=== PATIENT | female | born 1970 | race Caucasian/White ===

== ENCOUNTER 2016-08-23 21:20 | Observation (INO) | payer OTHER ==
[~2016-08-23] VITALS: Ht 175.3 cm; Wt 89.1 kg
[~2016-08-23 21:20] MED LIST: HYDR1TAB PO
[2016-08-23] MEDS ORDERED: fentaNYL INJECTION 100 MCG/2 ML AMP ONE (21:29)
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
[2016-08-23 21:50] LABS: MEAN PLATELET VOLUME 11.2 FL (7.4-10.4); RED BLOOD COUNT 4.27 10^6/uL (4.35-5.85); RED CELL DISTRIBUTION WIDTH 13.1 % (10.0-14.5); WHITE BLOOD COUNT 16.1 10^3/uL (4.3-11.0)
--- NOTE | 2016-08-23 21:56 | Diagnostic Imaging Report ---
PROCEDURE: CT head and CT cervical spine without contrast. TECHNIQUE: Multiple contiguous axial images were obtained through the brain and cervical spine without the use of intravenous contrast. Sagittal and coronal reformations through the cervical spine were then performed. Indication: Head and neck pain after being thrown from a horse. Comparison: None. Discussion: Head: No intracranial hemorrhage, mass, midline shift, or hydrocephalus. The ventricles and sulci are normal size and configuration for age. The visualized orbits, paranasal sinuses, mastoid air cells, and calvarium are unremarkable. Cervical spine: No acute fracture, subluxation, or other osseous abnormality identified. No significant degenerative disease. Alignment is anatomic. Soft tissues are unremarkable. Impression: 1. Negative head CT. 2. Negative cervical spine CT. Dictated by: Dictated on workstation # [id number]
[2016-08-23 22:05] LABS: INR 1.2 (0.8-1.4); PROTHROMBIN TIME PATIENT 14.4 SEC (12.2-14.7)
[2016-08-23] MEDS ORDERED: fentaNYL INJECTION 100 MCG/2 ML AMP IVP STA (22:06)
[2016-08-23 22:08] LABS: ALANINE AMINOTRANSFERASE 47 U/L (0-55); ALBUMIN 3.6 G/DL (3.2-4.5); ANION GAP 10 MMOL/L (5-14); ASPARTATE AMINO TRANSFERASE 55 U/L (5-34); BILIRUBIN,DIRECT 0.1 MG/DL (0.0-0.3); BILIRUBIN,INDIRECT 0.2 MG/DL; BILIRUBIN,TOTAL 0.3 MG/DL (0.1-1.0); BLOOD UREA NITROGEN 17 MG/DL (7-18); BUN/CREATININE RATIO 22; CARBON DIOXIDE 21 MMOL/L (21-32); CHLORIDE 106 MMOL/L (98-107); CREATININE SERUM 0.79 MG/DL (0.60-1.30); GFR ESTIMATED > 60; GLUCOSE 107 MG/DL (70-105); POTASSIUM 4.1 MMOL/L (3.6-5.0); SODIUM 137 MMOL/L (135-145); TOTAL PROTEIN 7.4 G/DL (6.4-8.2)
[2016-08-23 22:09] LABS: ALCOHOL < 10 MG/DL (<10)
[2016-08-23 22:14] LABS: TROPONIN I < 0.30 NG/ML (<0.30)
[2016-08-23] MEDS ORDERED: NS 100 ML (IVPB) BAG IV ONE (22:30)
[2016-08-23] MEDS ORDERED: IOHEXOL 350 MG/ML 100 ML (OMNIPAQUE 350) VIAL IV ONE (22:30)
[2016-08-23] MEDS ORDERED: morphine INJ 10 MG/ML 1ML (SYR OR VIAL) ONE (22:31)
[2016-08-23] MEDS ORDERED: morphine INJ 10 MG/ML 1ML (SYR OR VIAL) IVP STA ×2 (22:34→23:15)
[2016-08-23 23:39] LABS: BILIRUBIN,URINE NEGATIVE (NEGATIVE); KETONES,URINE NEGATIVE (NEGATIVE); LEUKOCYTE ESTERASE ,URINE 1+ (NEGATIVE); NITRITE,URINE NEGATIVE (NEGATIVE); PH,URINE 5 (5-9); PROTEIN,URINE 2+ (NEGATIVE); UROBILINOGEN,URINE NORMAL (NORMAL)
[2016-08-23 23:48] LABS: WBC,URINE RARE /HPF
[2016-08-23 23:49] LABS: SQUAMOUS EPITHELIAL CELL,UR 0-2 /HPF
[2016-08-24] VITALS (16 sets, daily range): BP systolic 97–125; BP diastolic 64–80
[2016-08-24] MEDS ORDERED: morphine INJ 10 MG/ML 1ML (SYR OR VIAL) IVP STA (00:45)
[2016-08-24] MEDS ORDERED: D5 1/2 NS W/KCL 20 MEQ/L 1,000 ML IV ONE (01:24)
[2016-08-24] MEDS ORDERED: NICOTINE 21 MG (NICODERM) PATCH ONE (01:25)
[2016-08-24] MEDS ORDERED: D5 1/2 NS 1000 ML IV SOLUTION 1,000 ML IV SCH (01:30)
[2016-08-24] MEDS ORDERED: CATHETER FLUSH 10 ML SYR IV PRN (01:30)
[2016-08-24] MEDS ORDERED: ONDANSETRON 4 MG/2 ML (SDV) Z0FRAN IV PRN ×2 (01:30→04:15)
[2016-08-24] MEDS: D5 1/2 NS W/KCL 20 MEQ/L 1,000 ML IV SCH ×2 (01:58→08:18)
[2016-08-24] MEDS ORDERED: RT-ALBUTEROL SULF 2.5 MG/3 ML PRE-MIX VIAL IH PRN (02:00)
[2016-08-24] MEDS ORDERED: 1/2 NS IV SOLUTION 1,000 ML IV PRN (04:07)
[2016-08-24] MEDS ORDERED: SENNA W/DOCUSATE (SENOKOT S) TABLET PO PRN (04:15)
[2016-08-24] MEDS ORDERED: D5 1/2 NS 1000 ML IV SOLUTION 1,000 ML IV PRN (04:15)
[2016-08-24] MEDS ORDERED: LORazepam INJ 2 MG/ML (ATIVAN) VIAL IM/IV PRN (04:15)
[2016-08-24] MEDS ORDERED: ANTACID SUSP 30 ML UDC (MYLANTA) PO PRN (04:15)
[2016-08-24] MEDS ORDERED: LORazepam 1 MG (ATIVAN) TAB PO PRN (04:15)
[2016-08-24] MEDS ORDERED: LORazepam INJ 2 MG/ML (ATIVAN) VIAL IV PRN (04:15)
[2016-08-24] MEDS: morphine INJ 10 MG/ML 1ML (SYR OR VIAL) IV PRN ×5 (04:18→12:17)
[2016-08-24 04:23] LABS: BASOPHILS % (AUTO) 0 % (0-10); EOSINOPHILS % (AUTO) 0 % (0-10); LYMPHOCYTES # (AUTO) 1.1 X 10^3 (1.0-4.0); LYMPHOCYTES % (AUTO) 7 % (12-44); MEAN CORPUSCULAR HEMOGLOBIN 30 PG (25-34); MEAN CORPUSCULAR HGB CONC 33 G/DL (32-36); MEAN CORPUSCULAR VOLUME 92 FL (80-99); MEAN PLATELET VOLUME 11.5 FL (7.4-10.4); MONOCYTES # (AUTO) 1.1 X 10^3 (0.0-1.0); MONOCYTES % (AUTO) 8 % (0-12); NEUTROPHILS # (AUTO) 12.2 X 10^3 (1.8-7.8); NEUTROPHILS % (AUTO) 85 % (42-75); PLATELET COUNT 155 10^3/uL (130-400); RED BLOOD COUNT 3.93 10^6/uL (4.35-5.85); RED CELL DISTRIBUTION WIDTH 12.8 % (10.0-14.5); WHITE BLOOD COUNT 14.4 10^3/uL (4.3-11.0)
[2016-08-24 04:42] LABS: ALANINE AMINOTRANSFERASE 43 U/L (0-55); ALBUMIN 3.3 G/DL (3.2-4.5); ANION GAP 8 MMOL/L (5-14); ASPARTATE AMINO TRANSFERASE 54 U/L (5-34); BILIRUBIN,TOTAL 0.5 MG/DL (0.1-1.0); BLOOD UREA NITROGEN 15 MG/DL (7-18); BUN/CREATININE RATIO 20; CALCIUM 8.5 MG/DL (8.5-10.1); CARBON DIOXIDE 22 MMOL/L (21-32); CHLORIDE 107 MMOL/L (98-107); CREATININE SERUM 0.76 MG/DL (0.60-1.30); GFR ESTIMATED > 60; GLUCOSE 130 MG/DL (70-105); POTASSIUM 4.3 MMOL/L (3.6-5.0); SODIUM 137 MMOL/L (135-145); TOTAL PROTEIN 6.7 G/DL (6.4-8.2)
[2016-08-24 04:47] LABS: ALCOHOL < 10 MG/DL (<10)
[2016-08-24 05:13] LABS: INR 1.1 (0.8-1.4); PROTHROMBIN TIME PATIENT 14.1 SEC (12.2-14.7)
[2016-08-24] MEDS ORDERED: CATHETER FLUSH 10 ML SYR IV SCH (06:00)
--- NOTE | 2016-08-24 07:15 | Diagnostic Imaging Report ---
AP view of the pelvis. INDICATION: Fall. FINDINGS: There is a fracture involving the right pubic body seen resulting in inferior displacement of the superior pubic ramus. There is also a suspected vertical fracture through the left sacral ala. The hip joints appear symmetric. There is urinary bladder opacification related to contrast given in recent CT scan. IMPRESSION: Fractures of the right pubic ramus and left sacral ala. Dictated by: Dictated on workstation # [id number]
--- NOTE | 2016-08-24 07:16 | Diagnostic Imaging Report ---
Two views of the right clavicle. INDICATION: Patient thrown from a horse. FINDINGS: There is a mildly displaced and mildly comminuted fracture of the mid clavicle. The medial and lateral joints appear in good position. No radiopaque foreign body seen. IMPRESSION: Mildly comminuted and displaced fracture of the mid right clavicle. Dictated by: Dictated on workstation # [id number]
--- NOTE | 2016-08-24 07:16 | Diagnostic Imaging Report ---
3 views of the right shoulder. INDICATION: Right shoulder injury. FINDINGS: There is a mildly displaced mildly comminuted fracture of the mid right clavicle. The acromioclavicular joint is in normal position with minimal degenerative changes. The glenohumeral joint appears normal. No radiopaque foreign body is seen. IMPRESSION: Mildly comminuted and displaced fracture of the mid right clavicle. Dr. Barrera is aware of the findings. Dictated by: Dictated on workstation # [id number]
--- NOTE | 2016-08-24 07:40 | Diagnostic Imaging Report ---
CT thoracic and lumbar spine performed without intravenous contrast. INDICATION: Patient was thrown from a horse. FINDINGS: CT thoracic spine: There is a partially visualized mildly comminuted fracture of the mid right clavicle with associated soft tissue hematoma. There is a fracture of the right second rib seen. A tiny right pneumothorax is present. The thoracic spine demonstrates normal alignment of the posterior spinal line. There are normal vertebral body heights. The facet joints are normally aligned. No fracture is seen. There is bilateral prominent foraminal narrowing at T7-T8 level from spurring related to degenerative changes of the adjacent facet joints. There is a fracture in the right transverse process of T12, nondisplaced. No other fracture in the thoracic spine is seen. CT lumbar spine: There is satisfactory alignment of the posterior spinal line and of the facet joints. There is no compression fracture. There is no pars fracture seen. There are fractures however seen in the transverse processes of L1, L2, and L5 levels on the right side. The pedicles and posterior elements are intact. There are bilateral sacral fractures involving mostly the left sacral ala with comminution. Some fracture lines extend into the left sacral S1 neural foramen. The left sacral fracture demonstrates displacement of the cortex anteriorly and posteriorly with minimal angulation along the anterior aspect of S2 in an impacted manner. The fracture line of the posterior aspect of S1 vertebral body to the left of the midline extends to the spinal canal with no obvious or large hematoma within the spinal canal based on CT scan. MRI is better at such assessment, however. The fracture in the right sacral ala demonstrates no significant displacement. Displaced fragments and surrounding hematoma are seen anterior to the lower aspect of the left sacral ala. IMPRESSION: CT thoracic spine: 1. Fracture of the right clavicle and second rib with tiny right pneumothorax. 2. Nondisplaced fracture of the right transverse process of T12. CT lumbar spine: 1. There is a comminuted fracture of the sacrum with displaced fragments anteriorly along the anterior lower aspect of the left sacral ala. There is also extension of the fracture lines into the left S1 neural foramen and minimal extension into the anterior aspect of the spinal canal in the upper sacrum. 2. Minimally displaced fractures of the transverse processes of L1 and L2 on the right side and bilaterally at the L5 level. This reading agrees with the [facility] report. . Dictated by: Dictated on workstation # [id number]
[2016-08-24] MEDS ORDERED: RT-ALBUTEROL SULF 2.5 MG/3 ML PRE-MIX VIAL IH SCH (08:00)
--- NOTE | 2016-08-24 08:04 | Diagnostic Imaging Report ---
AP view of the chest. INDICATION: Trauma. FINDINGS: Comminuted fracture of the right clavicle is seen. The tiny pneumothorax noted on recent CT scan is not appreciated. No significant effusion or focal infiltrate. The heart size is normal. Internal fixation hardware is partially visualized in the upper left humerus IMPRESSION: Comminuted right clavicle fracture. The minimal right pneumothorax seen on recent CT is not visible on this radiograph. Dictated by: Dictated on workstation # [id number]
--- NOTE | 2016-08-24 08:10 | Diagnostic Imaging Report ---
PROCEDURE: CT chest, abdomen, and pelvis with contrast. TECHNIQUE: Multiple contiguous axial images were obtained through the chest, abdomen, and pelvis after the administration of intravenous contrast. INDICATION: Injury. 100 mL of Omnipaque 350 is administered intravenously. FINDINGS: CT chest: There is a comminuted mildly displaced fracture in the mid right clavicle. There is a nondisplaced fracture in the anterior aspect of the right second rib and a nondisplaced fracture in the right fifth rib. Also fracture of the right transverse process of T12 is seen. There is a minimal right pneumothorax. Minimal amount of soft tissue air is seen around the right chest wall anteriorly and superiorly. The lungs demonstrate mild atelectasis in the bases with no significant contusion. No pleural or pericardial hemorrhage. No mediastinal hematoma or mass. The thoracic aorta is normal in caliber. The cardiac size appears unremarkable. CT abdomen and pelvis: The liver, the gallbladder, the spleen, the pancreas, and the adrenal glands appear unremarkable. No solid organ laceration or subcapsular hematoma is seen. The kidneys appear symmetric in enhancement and excretion. The abdominal aorta is normal in caliber. No para-aortic significantly enlarged lymph node is seen. No retroperitoneal hematoma in the abdomen. In the pelvis there are fractures involving the sacrum with comminution and displacement in the left sacral ala with bone fragments displaced anteriorly. This is surrounded by soft tissue hematoma in the presacral region more on the left side which cannot be measured accurately due to inability to separate it from the adjacent muscle. Rough measurements of the extent of the hematoma are about 4.0 x 2.5 x 7.0 cm based on the anterior soft tissue fullness in the left side of the sacrum. There is also another extraperitoneal hematoma anteriorly adjacent to a mildly displaced fracture involving the right pubic body; roughly this hematoma measures 5.5 x 3.7 x 4.0 cm and has mass effect on the urinary bladder which appears otherwise intact. No free peritoneal hematoma. No definite active extravasation of contrast is seen. IMPRESSION: CT chest: 1. Minimal right pneumothorax. 2. Displaced comminuted fracture of the right clavicle and nondisplaced fractures of the right second and fifth ribs and right T12 transverse process. CT abdomen and pelvis: 1. No solid organ injury or intraperitoneal hemorrhage. No definitive active extravasation of contrast. 2. Comminuted sacral fractures with displaced fragments anteriorly along the left sacral ala. This is associated with an adjacent small to moderate soft tissue hematoma. Another extraperitoneal hematoma around minimally displaced right pubic body fracture is also seen. This reading agrees with the [facility] report. Dictated by: Dictated on workstation # [id number]
--- NOTE | 2016-08-24 08:14 | Diagnostic Imaging Report ---
Portable supine radiograph of the chest. INDICATION: Trauma. FINDINGS: Comminuted nondisplaced fracture of the right clavicle is seen. There is no definite right pneumothorax. The heart size is normal. No focal infiltrate. No effusion. The mediastinum and kody appear unremarkable. IMPRESSION: Mildly displaced and comminuted fracture of the midright clavicle. Clear lungs. Dictated by: Dictated on workstation # [id number]
--- NOTE | 2016-08-24 08:34 | Physical Therapy Progress Note ---
Therapy Progress Note Evaluation order for PT received, chart reviewed. Nurse states that patient is not ready to begin PT at this time and she still has a pelvic binder on. Nurse was told we would try back this afternoon and she said ok but that patient probably would not be ready to participate today. EMMETT ANN PT August 24, 2016 08:34
[2016-08-24] MEDS ORDERED: PATCH REMOVAL TP SCH (09:00)
[2016-08-24] MEDS ORDERED: NICOTINE 21 MG (NICODERM) PATCH TD SCH (09:00)
[2016-08-24] MEDS ORDERED: THIAMINE INJECTION 100 MG, FOLIC ACID INJECTION 1 MG, VITAMIN MULTI INJECTION 10 ML, MA... IV SCH ×5 (09:00)
--- NOTE | 2016-08-24 11:01 | Consultation ---
History of Present Illness History of Present Illness Patient Consulted On(heri/time) 08/24/16 10:58 Date of Admission 08/23/2016, admitted at 22:50 I saw pt at 10:25 today History of Present Illness Pt is a 45 yo female admitted to trauma service, after being thrown from horse and then horse fell on pt. Pt states the horse got spooked and reared up, she fell off and then was struck by saddle and horse sat on her. She denies any LOC. In the ER her main complaints were right shoulder pain and groin/pubic/hip pain. She has same complaints now. She rates the pain as a 10 out of 10, without the pain meds. She did have some SOB last night with deep breaths, it seems better now. She has a paulino in place, no gross hematuria is seen. Pt denies chest or neck pain at this time. Denies abdominal pain. Pain is constant, sharp and achey. Allergies and Home Medications Allergies Coded Allergies: No Known Drug Allergies (Unverified , 01/12/12) Home Medications No Active Prescriptions or Reported Meds Past Kqnftyt-Dqqzvy-Ftbuam Hx Patient Social History Alcohol Use: Regular Use Recreational Drug Use: Yes (THC, METH--DENIES IV USE) Smoking Status: Current Everyday Smoker Type Used: Cigarettes 2nd Hand Smoke Exposure: Yes Recent Foreign Travel: No Contact w/Someone Who Travel: No Recent Infectious Disease Expo: No Recent Hopitalizations: No Physical Abuse Screen: No Sexual Abuse: No Immunizations Up To Date Tetanus Booster (TDap): Less than 5yrs Seasonal Allergies Seasonal Allergies: No Surgeries HX Surgeries: Yes (HYST; MULTIPLE SURGERIES TO LEFT UPPER ARM/ SHOULDER; LEFT WRIST AND HAND FX/ORIF; ) Surgeries: Section, Hysterectomy, Orthopedic, Tubal Ligation Respiratory Hx Respiratory Disorders: No Cardiovascular Hx Cardiac Disorders: No Neurological Hx Neurological Disorders: No Reproductive System : No [employer]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 History: Hysterectomy Genitourinary Hx Genitourinary Disorders: No Gastrointestinal Hx Gastrointestinal Disorders: No Musculoskeletal Hx Musculoskeletal Disorders: Yes (LEFT UPPER ARM/ SHOULDER FX-MULTIPLE SURGERIES; LEFT HAND/WRIST FX'S / ORIF) Musculoskeletal Disorders: Fractures Endocrine Hx Endocrine Disorders: No HEENT HX ENT Disorders: No Cancer Hx Cancer: No Psychosocial Hx Psychiatric Problems: No Integumentary HX Skin/Integumentary Disorder: No Blood Transfusions Hx Blood Disorders: No Adverse Reaction to a Blood Tr: No Family Medical History Significant Family History: Cancer (mother of cervical cancer), Diabetes ( father), Hypertension (mother) Family Medial History: Diabetes mellitus 19 FATHER FH: ovarian cancer 19 MOTHER Review of Systems-General Constitutional: No chills, No diaphoresis, No weight gain, No weight loss EENTM: No blurred vision, No double vision, No ear discharge, No epistaxis, No hearing loss, No mouth pain, No mouth swelling, No throat swelling Respiratory: No cough, No dyspnea on exertion, No hemoptysis, short of breath ( improved compared to last night, but doesn't want to take deep breaths) Cardiovascular: No chest pain, No Hx of Intervention, No palpitations Gastrointestinal: No abdominal pain, No constipation, No diarrhea, No melena Genitourinary: No dysuria, No frequency, No hematuria Musculoskeletal: joint pain, muscle stiffness, muscle cramps Skin: No change in color, No change in hair/nails, No lesions, No lumps Psychiatric/Neurological: Denies Anxiety, Denies Depressed, Denies Emotional Problems, Denies Paresthesia, Denies Seizure, Denies Tingling, Denies Tremors, Denies Weakness Other Denies heat or cold intolerance, no chronic illnesses. Pt denies abnormal bruising or bleeding. Physical Exam-General Problems Physical Exam Vital Signs Vital Sign - Last 12Hours 08/23/16 08/23/16 08/24/16 21:20 23:00 01:20 Temp 97.0 Pulse 76 Resp 16 B/P (MAP) 119/102 (108) Pulse Ox 96 O2 Delivery Room Air O2 Flow Rate 2.00 Capillary Refill : Less Than 3 SecondsLess Than 3 Seconds General Appearance: WD/WN, moderate distress (secondary to pain) Eyes: Bilateral Eye EOMI, Bilateral Eye PERRL HEENT: pharynx normal, No scleral icterus (R), No scleral icterus (L) Neck: supple, normal inspection, No thyromegaly Respiratory: lungs clear, no respiratory distress, no accessory muscle use Cardiovascular: regular rate, rhythm, no edema, no JVD, no murmur Peripheral Pulses: 4+ Carotid (R), 4+ Carotid (L), 4+ Dorsalis Pedis (R), 4+ Left Dors-Pedis (L), 4+ Radial Pulses (R), 4+ Radial Pulses (L) Gastrointestinal: normal bowel sounds, soft, no organomegaly, no pulsatile mass Rectal: deferred Back: No decreased range of motion, vertebral tenderness (low back) Extremities: no pedal edema, no calf tenderness, pelvis stable (but tender, appears to be some early bruising suprapubically), other (fractured right clavicle) 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 as tested, no motor/sensory deficits, alert, normal mood/affect, oriented x 3 Skin: normal color, warm/dry Lymphatic: no adenopathy (neck, axilla or groin) Data Review Labs Laboratory Tests 08/23/16 21:26: White Blood Count 16.1H, Red Blood Count 4.27L, Hemoglobin 13.0, Hematocrit 39, Mean Corpuscular Volume 92, Mean Corpuscular Hemoglobin 30, Mean Corpuscular Hemoglobin Concent 33, Red Cell Distribution Width 13.1, Platelet Count 180, Mean Platelet Volume 11.2H, Prothrombin Time 14.4, INR Comment 1.2, Activated Partial Thromboplast Time 32, Sodium Level 137, Potassium Level 4.1, Chloride Level 106, Carbon Dioxide Level 21, Anion Gap 10, Blood Urea Nitrogen 17, Creatinine 0.79, Estimat Glomerular Filtration Rate > 60, BUN/Creatinine Ratio 22, Glucose Level 107H, Calcium Level 9.0, Total Bilirubin 0.3, Direct Bilirubin 0.1, Indirect Bilirubin 0.2, Aspartate Amino Transf (AST/SGOT) 55H, Alanine Aminotransferase (ALT/SGPT) 47, Alkaline Phosphatase 55, Troponin I < 0.30, Total Protein 7.4, Albumin 3.6, Serum Alcohol < 10 08/23/16 22:35: Serum Test, Qualitative NEGATIVE 08/23/16 23:24: Urine Color YELLOW, Urine Clarity CLEAR, Urine pH 5, Urine Specific [place] 1.015L, Urine Protein 2+H, Urine Glucose (UA) NEGATIVE, Urine Ketones NEGATIVE, Urine Nitrite NEGATIVE, Urine Bilirubin NEGATIVE, Urine Urobilinogen NORMAL, Urine Leukocyte Esterase 1+H, Urine RBC (Auto) 3+H, Urine RBC 0-2, Urine WBC RARE, Urine Squamous Epithelial Cells 0-2, Urine Crystals NONE, Urine Bacteria NEGATIVE, Urine Casts NONE, Urine Mucus SMALLH, Urine Culture Indicated NO, Urine Opiates Screen POSITIVEH, Urine Oxycodone Screen NEGATIVE, Urine Methadone Screen NEGATIVE, Urine Propoxyphene Screen NEGATIVE, Urine Barbiturates Screen NEGATIVE, Ur Tricyclic Antidepressants Screen NEGATIVE, Urine Phencyclidine Screen NEGATIVE, Urine Amphetamines Screen POSITIVEH, Urine Methamphetamines Screen POSITIVEH, Urine Benzodiazepines Screen NEGATIVE, Urine Cocaine Screen NEGATIVE, Urine Cannabinoids Screen NEGATIVE 08/24/16 03:52: White Blood Count 14.4H, Red Blood Count 3.93L, Hemoglobin 11.9, Hematocrit 36, Mean Corpuscular Volume 92, Mean Corpuscular Hemoglobin 30, Mean Corpuscular Hemoglobin Concent 33, Red Cell Distribution Width 12.8, Platelet Count 155, Mean Platelet Volume 11.5H, Sodium Level 137, Potassium Level 4.3, Chloride Level 107, Carbon Dioxide Level 22, Anion Gap 8, Blood Urea Nitrogen 15, Creatinine 0.76, Estimat Glomerular Filtration Rate > 60, BUN/Creatinine Ratio 20, Glucose Level 130H, Calcium Level 8.5, Total Bilirubin 0.5, Aspartate Amino Transf (AST/SGOT) 54H, Alanine Aminotransferase (ALT/SGPT) 43, Alkaline Phosphatase 50, Total Protein 6.7, Albumin 3.3, Serum Alcohol < 10, Neutrophils (%) (Auto) 85H, Lymphocytes (%) (Auto) 7L, Monocytes (%) (Auto) 8, Eosinophils ( %) (Auto) 0, Basophils (%) (Auto) 0, Neutrophils # (Auto) 12.2H, Lymphocytes # ( Auto) 1.1, Monocytes # (Auto) 1.1H, Eosinophils # (Auto) 0.0, Basophils # (Auto ) 0.0 08/24/16 04:48: Prothrombin Time 14.1, INR Comment 1.1, Activated Partial Thromboplast Time 33 Assessment/Plan Assessment/Plan Assessment/Plan Trauma Non-Activation with 1. Comminuted Clavicle Fx 2. Anterior right pubic rami fx 3. Left Sacral Alar fx 4. Right 2nd and 5th rib fx 5. Small PTX seen on CT 6. Suspected Pulmonary contusions 7. Small hematomas next to Sacral and Pubic Rami fractures Fortunately for pt none of these need surgery; per Orthopedic surgeon who viewed films himself. Her repeat CXR this am does not show PTX. Her labs are basically stable, small drop in Hg...but to be expected with IVF and slight bleed. Pulmonary contusion should be managed with IS and hold fluids. Pt will be discharged with pain control, Oxycodone 10/325. She will be given Ortho phone number to f/u in a week and my phone number if she is having trouble. She is able to bear weight and should walk a little at home. Sitting around on the couch is not good. D/C jefferson. Clinical Quality Measures DVT/VTE Risk/Contraindication: Risk Factor Score Per Nursin RFS Level Per Nursing on Admit: 4+=Very High PAOLA ROBERTSON DO August 24, 2016 11:01
[2016-08-24] MEDS ORDERED: OXYC-465 PO (11:20)
--- NOTE | 2016-08-24 11:27 | Discharge Inst-Surgical ---
Discharge Inst-Surgical Depart Medication/Instructions New, Converted or Re-Newed RX: RX Given to Pt/Family Patient Instructions Follow up Appt: Make appointment for [address] Pina, Can call Dr. Snell at [phone] Instructions: No lifting greater than 10 pounds. Keep right arm in sling, wait for instructions from Dr. Pina No strenuous activity. May shower in 24 hours, no tub bath or soaking. Use incentive spirometer at home as directed. No Smoking Symptoms to Report: Appetite Changes, Extremity Discoloration, Numbness/Tingling, Swelling Increased , Bleeding Excessive, Eyesight Changes, Pain Increased, Urine Color Change, Constipation(Persistent), Fever over 101 degree F, Pain/Pressure in chest, Urinating Difficulty, Cough Up/Vomit Blood, Heart Beat Irreg/Pounding, Pain/ Pressure in jaw, Vaginal Bleeding Increase, Cramps in feet or legs, Lightheadedness, Pain/Pressure in shoulder, Diarrhea(Persistent), Memory Changes Suddenly, Questions/Concerns, Weight gain consecutive days, Dizziness/ Fainting, Nausea/Vomiting, Shortness of Breath, Weight gain over 2 pounds If questions or concerns contact your physician Or seek help at emergency department. Consults/Follow Up Orders & Referrals Dr. Pina Orthopedic surgery Activity Activity as Tolerated: Yes Driving Instructions: No Driving/Refer to Dr. Dodge Discharge Diet: No Restrictions If Any Problems/Questions/Issu: Contact Your Physician, Go to Emergency Room Skin/Wound Care Bathing Instructions: PAOLA Dill DO August 24, 2016 11:27
[2016-08-25] MEDS ORDERED: MAGNESIUM 1 GM/100 ML IVPB 100 ML IV SCH (06:00)
[2016-08-25] MEDS ORDERED: POTASSIUM CL 10MEQ/50ML IVPB 50 ML IV SCH (06:00)
[2016-08-25] MEDS ORDERED: KCL 20 MEQ TAB (K-DUR) PO SCH (06:00)
== END 2016-08-24 11:22 | disposition home or self-care (01) ==
LOC: EDUNIT# 21:20 → ER 21:23 → ICU 22:50 → UNDOADMOB 22:50 → ICU 08-24 01:25 → UNDODISOB 08-24 12:40
PROVIDERS: ADMIT Surgery; ATTEND Surgery
DX: S32.119A Unspecified Zone I fracture of sacrum, initial encounter for closed fracture (principal); S32.511A Fracture of superior rim of right pubis, initial encounter for closed fracture; S32.018A Other fracture of first lumbar vertebra, initial encounter for closed fracture; S32.028A Other fracture of second lumbar vertebra, initial encounter for closed fracture; S32.058A Other fracture of fifth lumbar vertebra, initial encounter for closed fracture; S22.088A Other fracture of T11-T12 vertebra, initial encounter for closed fracture; S42.021A Displaced fracture of shaft of right clavicle, initial encounter for closed fracture; S22.41XA Multiple fractures of ribs, right side, initial encounter for closed fracture; S27.0XXA Traumatic pneumothorax, initial encounter; F10.20 Alcohol dependence, uncomplicated; F15.90 Other stimulant use, unspecified, uncomplicated; F17.210 Nicotine dependence, cigarettes, uncomplicated; V80.010A Animal-rider injured by fall from or being thrown from horse in noncollision accident, initial encounter; W55.12XA Struck by horse, initial encounter
CPT/HCPCS: 36415; 51702; 70450; 71010; 71260; 72125; 72128; 72131; 72170; 73000; 73030; 74177; 80048; 80053; 80076; 80306; 80320; 81000; 84484; 84703; 85025; 85027; 85610; 85730; 86850; 86900; 86901; 87081; 94640; 94664; 96374; 96375; 96376; G0378